=== PATIENT | female | born 2000 | race African-American/Black ===

== ENCOUNTER 2021-09-19 07:39 | Emergency (ER) | payer MEDICAID, SELFPAY ==
[2021-09-19 07:41] VITALS: BP 131/79; PULSE 108; RESP 17; TEMP 37.1; O2SAT 98; BMI 25.7
--- NOTE | 2021-09-19 07:47 | NURSING ---
STROKE ALERT CALLED [phone]
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
[2021-09-19 07:51] LABS: Bedside Glucose 87 mg/dL (74-106)
--- NOTE | 2021-09-19 07:52 | ED.RN ---
STROKE ALERT CANCELLED. PT W/SEIZURE AND WITH SEIZURE HISTORY.
[2021-09-19 07:56] LABS: Absolute Lymphocyte Count 3.79 X10^3/uL (0.83-4.51); Absolute Neutrophil Count 7.3 X10^3/uL (2.0-7.7); Basophil# 0.06 X10^3/uL; Basophil% 0.5 % (0-1); Eosinophils% 0.8 % (0-5); Hematocrit 38.6 % (37-47); Hemoglobin 12.6 g/dL (12.0-15.0); Lymphocyte # 3.79 X10^3/ul (0.83-4.51); Lymphocyte % 31.7 % (19-41); Mean Corp Hgb Conc 32.6 g/dL (32-36); Mean Corpuscular Hgb 30.1 pg (27.0-32.0); Mean Corpuscular Volume 92.1 fL (81-99); Mean Platelet Vol. 9.3 fl (6.2-12.0); Monocyte# 0.69 X10^3/uL; Monocyte% 5.8 % (0-10); NRBC Flagged by Analyzer 0 % (0-5); Neutrophil # 7.25 X10^3/uL (2.7-7.7); Neutrophil % 60.5 % (47-70); Platelet Count 279 K/mm3 (150-450); RBC Distribution Width CV 12.3 % (11.6-14.6); RBC Distribution Width SD 41.7 fl (35.1-43.9); Red Blood Count 4.19 M/mm3 (4.2-5.4)
[2021-09-19 08:06] LABS: Anion Gap 7 (5-15); BUN 14 mg/dL (7-18); BUN/Creat Ratio 14.6 RATIO (10-20); Chloride 107 mmol/L (98-107); Creatinine, Serum 0.96 mg/dL (0.55-1.02); EST Glomerular Filtration Rate 79 mL/min (>60); Est Glom Filt Rate - Afr Amer 96 mL/min (>60); Estimated Creatinine Clearance 81.39 ml/min; Glucose 114 mg/dL (74-106); Sodium Level 138 mmol/L (136-145)
[2021-09-19 08:56] LABS: Internal QC Validated? YES +Cl - CLEAR BKGD; Pregnancy, Serum, hCG Quali. NEGATIVE Negative
[2021-09-19 08:57] VITALS: BP 109/63; PULSE 85; RESP 16
[2021-09-19 09:53] VITALS: BP 117/80; PULSE 99; RESP 21; O2SAT 94
== END 2021-09-19 09:54 | disposition home or self-care (01) ==
PROVIDERS: Emergency Provider Emergency Medicine; Visit Provider Emergency Medicine
DX: G40.909 Epilepsy, unspecified, not intractable, without status epilepticus (principal)
CPT/HCPCS: 70450; 72125; 80048; 82962; 84703; 85025; 99283; A4216

== ENCOUNTER 2022-07-23 01:27 | Emergency (ER) | payer MEDICAID, SELFPAY ==
[2022-07-23 01:28] VITALS: BP 122/79; PULSE 100; RESP 18; TEMP 36.7; O2SAT 100; BMI 25.1
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
[2022-07-23] MEDS: Ketorolac 30 MG/ML Syringe IM (02:14)
[2022-07-23] MEDS: diazePAM 5 MG Tablet PO (02:19)
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
== END 2022-07-23 03:16 | disposition home or self-care (01) ==
PROVIDERS: Emergency Provider Emergency Medicine; Visit Provider Emergency Medicine
DX: S39.012A Strain of muscle, fascia and tendon of lower back, initial encounter (principal); V49.88XA Car occupant (driver) (passenger) injured in other specified transport accidents, initial encounter
CPT/HCPCS: 72100; 96372; 99285

== ENCOUNTER 2023-06-22 23:39 | Emergency (ER) | payer SELFPAY ==
[2023-06-22 23:40] VITALS: BP 125/83; PULSE 81; RESP 16; TEMP 36.6; O2SAT 99; BMI 26.4
--- NOTE | 2023-06-23 01:47 | EX.ED.DYSGE1 ---
HPI History of Present Illness Chief Complaint: Ear Problem Detail of Chief Complaint: Right ear pain Informant: patient Onset/Context/Timing Onset: Yesterday Context: Sudden Onset Timing: Continuous Quality: Pain Location: Right ear Current Severity: Moderate Maximum Severity: Moderate Worsened by: Nothing specific Relieved by: Nothing Associated Symptoms Associated Symptoms: No constitutional symptoms Narrative Narrative: Patient is a 22-year-old female who presents with right ear pain. She denies fever, chills night sweats. Denies headache. Denies drainage from the ear. She denies using a Q-tip. She denies ocular, or visual symptoms She denies rhinorrhea, congestion, postnasal drainage. Denies sore throat. She denies cough or shortness of breath. Prior similar symptoms: Yes Recent Illness/Hospitalization: No PFSH PFSH Medical History Seizures Home Medications ibuprofen 600 mg tablet 600 mg PO 4X/DAY PRN PRN pain #40 tabs 07/23/22 [Rx Last Taken Unknown] amoxicillin 500 mg tablet 500 mg PO TID #30 tabs 06/23/23 [Rx Last Taken Unknown] naproxen 500 mg tablet 500 mg PO BID #10 tabs 06/23/23 [Rx Last Taken Unknown] Allergy/AdvReac Type Severity Reaction Status Date / Time No Known Allergies Allergy Verified 06/22/23 23:43 Social History (Updated 06/23/23 @ 01:[address] Kj Olivia MD) household members: none Smoking Status: Current every day smoker tobacco type: e-cigarettes alcohol intake: never substance use type: does not use ROS ROS ED Constitutional Constitutional ED: Denies chills, fever(s), subjective or sweats Eyes Eyes: Denies blurry vision, change in vision or diplopia ENT ENT ED: Reports ear pain right; Denies rhinorrhea or sore throat Cardiovascular Cardiovascular: Denies chest pain Respiratory/Chest Respiratory/Chest: Denies cough or dyspnea Gastrointestinal Gastrointestinal: Denies nausea or vomiting Musculoskeletal Musculoskeletal: Denies arthralgias or myalgias EXAM Physical Exam Const Vital Signs: 06/22/23 23:40 Temperature 97.8 F Temperature Source Oral Pulse Rate 81 Respiratory Rate 16 Blood Pressure 125/83 H Blood Pressure Mean 97 Pulse Ox 99 Oxygen Delivery Method Room Air Positive well nourished and well developed General Appearance ED: well developed and NAD; Negative for pallor HEENT Reports moist mucous membranes HEENT Narrative: Head is atraumatic and normocephalic. There is discomfort with pulling on the auricle on the right. There is no discomfort portion of the tragus. There is no abnormality noted of the external auditory canal. The right TM is abnormal with erythema loss of landmarks. Nares patent. Posterior pharynx is normal Eyes PERRL and EOMs intact bilaterally General Eye ED: Negative for pale conjunctiva or scleral icterus Neck no lymphadenopathy, supple and no JVD Neck Narrative: There is no preauricular lymphadenopathy. Resp normal respiratory effort Cardio regular rate and regular rhythm Neuro oriented x3 and CN's II-XII intact bilaterally Sensorium / Orientation: alert Psych mental status grossly normal Skin no rashes or lesions noted, no wounds and skin turgor normal General Skin Exam: elasticity normal; Negative for jaundice or pallor MDM MDM MDM Narrative Medical decision making narrative: Patient with right ear pain differential would be external otitis, otitis media, otitis serous, TMJ or dental pain. Based on history and physical patient's pain is due to otitis media suppurativa. She was treated with amoxicillin and NSAIDs and she has no contraindication. History & Record Review Additional record(s) reviewed:: Prior ED visit (Seen last year for back pain and seizures) and Prior labs Discharge Plan Triage Chief Complaint: Ear Problem ED Provider: Kj Olivia Dx/Rx/DC Orders Clinical Impression: History of seizure, Otitis media Prescriptions: New amoxicillin 500 mg tablet 500 mg PO TID Qty: 30 0RF naproxen 500 mg tablet 500 mg PO BID Qty: 10 0RF No Action ibuprofen 600 mg tablet 600 mg PO 4X/DAY PRN PRN (Reason: pain) Qty: 40 0RF Primary Care Provider: Care Physician,No Primary Referrals: Nelson Baxter MD [Med Staff - Active Staff] - 3-5 Days if not improving Care Physician,No Primary [Primary Care Provider] - Disposition Disposition: Home, Self Care
[2023-06-23] MEDS: Naproxen 250 MG Tablet 500 MG PO (01:50)
[2023-06-23] MEDS: AMOXICILLIN 500 MG CAPSULE PO (01:51)
[2023-06-23 01:52] VITALS: BP 122/78; PULSE 77; RESP 16; TEMP 36.6; O2SAT 100
== END 2023-06-23 01:57 | disposition home or self-care (01) ==
PROVIDERS: Emergency Provider Emergency Medicine; Visit Provider Emergency Medicine
DX: H66.91 Otitis media, unspecified, right ear (principal); F17.290 Nicotine dependence, other tobacco product, uncomplicated
CPT/HCPCS: 99283

== ENCOUNTER 2024-04-20 15:41 | Emergency (ER) | payer SELFPAY ==
[2024-04-20 15:42] VITALS: BP 112/62; PULSE 80; RESP 16; TEMP 37; O2SAT 98; BMI 27.9
--- NOTE | 2024-04-20 16:11 | CT_ITS ---
EXAM: CT HEAD WITHOUT INTRAVENOUS CONTRAST CLINICAL INDICATION: seizure TECHNIQUE: Multiple axial images were obtained of the head without intravenous contrast. This CT exam was performed using one or more of the following dose reduction techniques: automated exposure control, adjustment of the mA and/or kV according to patient size, and/or use of iterative reconstruction technique. COMPARISON: 09/19/2021 FINDINGS: BRAIN AND EXTRA-AXIAL SPACES: Unremarkable. No intra- or extra-axial hemorrhage. No evidence of acute infarct. No intracranial mass or mass effect. There is preservation of the bey/white matter interface. Posterior fossa structures are unremarkable. Ventricles are appropriate for age. No hydrocephalus. Basal cisterns are patent. BONES/JOINTS: Unremarkable. No discrete lytic or blastic abnormalities. SINUSES: Unremarkable as visualized. Clear. MASTOID AIR CELLS: Unremarkable. Clear. ORBITS: Visualized globes, extraocular muscles, optic nerves and retrobulbar fat appear unremarkable. CT/Brain/Head without Contrast IMPRESSION: Negative head/brain CT without intravenous contrast. Electronically Signed: Gildardo Soriano MD at 16:57 EST ,
--- NOTE | 2024-04-20 16:12 | EX.ED.DYSGE1 ---
HPI History of Present Illness Chief Complaint: Seizure Detail of Chief Complaint: Seizure Informant: patient Narrative Narrative: Patient presents to the emergency department after having a seizure while at work. 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 It is unclear how long it lasted. Patient brought down to the ER for evaluation. Patient has known seizure history and is on Keppra. She tells me he has been compliant. She denies any recent illness but states she did have flulike illness meaning viral gastroenteritis about a week ago. Patient felt well prior to the seizure. Her last seizure was about 4 5 months ago. She denies any head or neck pain. She describes some mild lower abdominal pain but she states that she started her menstrual period today. Patient vomiting on arrival to the emergency department. [facility] Medical History Seizures Home Medications ?Medication ?Instructions ?Recorded ?Last Taken ?Type ibuprofen 600 mg tablet 600 mg PO 4X/DAY PRN PRN pain #40 07/23/22 Unknown Rx tabs amoxicillin 500 mg tablet 500 mg PO TID #30 tabs 06/23/23 Unknown Rx naproxen 500 mg tablet 500 mg PO BID #10 tabs 06/23/23 Unknown Rx ondansetron 4 mg disintegrating 4 mg PO Q8H PRN PRN Nausea #10 tabs 04/20/24 Unknown Rx tablet Allergy/AdvReac Type Severity Reaction Status Date / Time No Known Allergies Allergy Verified 04/20/24 15:42 Social History (Updated 06/23/23 @ 01:[address] Kj Olivia MD) household members: none Smoking Status: Current every day smoker tobacco type: e-cigarettes alcohol intake: never substance use type: does not use ROS ROS ED Review of Systems ROS Unobtainable: other Constitutional Constitutional ED: Reports lethargy; Denies chills, fever(s), sweats or weight loss Eyes Eyes: Denies blurry vision, change in vision or diplopia ENT ENT ED: Denies rhinorrhea or sore throat Cardiovascular Cardiovascular: Denies chest pain, orthopnea or racing heartbeat Respiratory/Chest Respiratory/Chest: Denies cough, dyspnea, dyspnea on exertion, orthopnea or sputum Gastrointestinal Gastrointestinal: Reports abdominal pain, nausea and vomiting; Denies diarrhea Genitourinary Genitourinary ED: Denies dysuria, hematuria or urinary frequency Musculoskeletal Musculoskeletal: Denies arthralgias, back pain, myalgias or neck pain Integumentary Denies abscess, Abrasions or rash Neurologic Neurologic: Reports other Details: Seizure ; Denies headache(s) or weakness Psychiatric Psychiatric: Denies anxiety, depression or suicidal thoughts Endocrine Endocrinology: Denies polydipsia, polyphagia or polyuria Hematologic/Lymphatic Hematologic/Lymphatic: Denies easy bleeding, easy bruising or lymphadenopathy Allergic/Immunologic Allergic/Immunologic ED: Denies mouth swelling, tongue swelling or urticaria EXAM Physical Exam Const Vital Signs: 04/20/24 15:42 Temperature 98.6 F Temperature Source Oral Pulse Rate 80 Respiratory Rate 16 Blood Pressure 112/62 Blood Pressure Mean 78 Pulse Ox 98 Oxygen Delivery Method Room Air Positive well nourished and well developed General Appearance ED: well developed and NAD HEENT Reports TM's clear and moist mucous membranes normocephalic and atraumatic; Negative for trauma or tenderness Tympanic Membrane ED: Yes TM's clear Eyes PERRL and EOMs intact bilaterally General Eye ED: Negative for pale conjunctiva or scleral icterus Neck no lymphadenopathy, supple and no JVD General: Negative for tenderness Chest Wall inspection of chest normal and palpation of chest normal Chest: Negative for tenderness Resp normal respiratory effort and clear to auscultation bilaterally Effort and Inspection: Negative for respiratory distress or pain with movement Auscultation: Negative for rhonchi, wheezes or diminished lung sounds Cardio regular rate, regular rhythm, S1 normal heart sound, S2 normal heart sound and no murmurs Peripheral Pulses: pulses 2+ throughout GI normal to inspection, nondistended, normoactive bowel sounds, soft to palpation, non-distended and no masses GI Narrative: Mild suprapubic tenderness on palpation. There is no rebound, rigidity, or peritoneal signs. No mass palpated. Back/Spine no CVA tenderness and no thoracic nor lumbar tenderness Extremity normal to inspection General Extremety ED: Negative for edema General Extremity: Negative for edema Neuro oriented x3, CN's II-XII intact bilaterally, no sensory deficits noted and gait normal Sensorium / Orientation: awake, alert, oriented to person, oriented to place and oriented to time Motor Exam: strength 5/5 throughout and strength abnormal Psych mental status grossly normal Skin no rashes or lesions noted and no wounds MDM MDM MDM Narrative Medical decision making narrative: Patient presents to the emergency department after having a seizure here at the hospital while at work. On arrival she is awake and alert and appropriate. She has vomiting on arrival. Patient denies recent illness. No significant external evidence of trauma noted. IV line was established. She was given a liter Mustain fluid bolus. She was given Zofran 4 mg IV. CBC with differential obtained showed a white count of 6.3 with hemoglobin 12.9 and platelet count of 311. Chemistries were unremarkable. LFTs were normal. Serum hCG was negative. I did obtain a CT scan of the brain without contrast given the fall and seizure and vomiting and this was unremarkable. On repeat examination at 1512 she is no longer vomiting and feels well. She will be discharged to home with a prescription for Zofran. She is advised to push fluids and continue to take her Keppra like normal. Advised to follow-up with her neurologist. Lab Data Attestation: I reviewed the patient's lab results. Labs: Laboratory Results - last 24 hr 04/20/24 16:17 WBC 6.3 RBC 4.29 Hgb 12.9 Hct 39.7 MCV 92.5 MCH 30.1 MCHC 32.5 RDW Std Deviation 43.2 RDW Coeff of Naina 12.8 Plt Count 311 MPV 9.1 Immature Gran % (Auto) 0.300 Neut % (Auto) 44.0 L Lymph % (Auto) 44.7 H Rush % (Auto) 8.7 Eos % (Auto) 1.3 Baso % (Auto) 1.0 Absolute Neuts (auto) 2.8 Absolute Lymphs (auto) 2.81 Nucleated RBC % 0 Sodium 136 Potassium 3.9 Chloride 107 Carbon Dioxide 26.0 Anion Gap 3 L BUN 13 Creatinine 0.81 Estim Creat Clear Calc 103.26 Est GFR (MDRD) Af Amer 113 Est GFR (MDRD) Non-Af 93 BUN/Creatinine Ratio 16.0 Glucose 115 H Calcium 9.0 Total Bilirubin 0.50 AST 11 L ALT 12 L Alkaline Phosphatase 87 Total Protein 7.8 Albumin 3.8 Globulin 4.0 Albumin/Globulin Ratio 1.0 Serum , Qual NEGATIVE Radiography Diagnostic Testing: Clinical Impression(s) from Imaging Studies Brain CT 04/20/24 16:11 IMPRESSION: Negative head/brain CT without intravenous contrast. Electronically Signed: Gildardo D. Breckwoldt, MD at 16:57 EST , Discharge Plan Triage Chief Complaint: Seizure ED Provider: Kalpana Toribio Dx/Rx/DC Orders Clinical Impression: Seizure Instructions: ED Seizure, Recurrent (Adult) Prescriptions: New ondansetron 4 mg tablet,disintegrating 4 mg PO Q8H PRN PRN (Reason: Nausea) Qty: 10 0RF No Action ibuprofen 600 mg tablet 600 mg PO 4X/DAY PRN PRN (Reason: pain) Qty: 40 0RF amoxicillin 500 mg tablet 500 mg PO TID Qty: 30 0RF naproxen 500 mg tablet 500 mg PO BID Qty: 10 0RF Primary Care Provider: Care Physician,No Primary Referrals: Care Physician,No Primary [Primary Care Provider] - Print Language: Estonian Disposition Disposition: Home, Self Care
[2024-04-20] MEDS: Ondansetron 4 MG/2 ML Vial IV (16:13)
[2024-04-20] MEDS: 0.9% Normal Saline (1000mL) 1,000 ML 1000 ML IV (16:15)
[2024-04-20 16:29] LABS: Absolute Lymphocyte Count 2.81 X10^3/uL (0.83-4.51); Absolute Neutrophil Count 2.8 X10^3/uL (2.0-7.7); Basophil# 0.06 X10^3/uL; Eosinophil# 0.08 X10^3/uL; Eosinophils% 1.3 % (0-5); Hematocrit 39.7 % (37-47); Hemoglobin 12.9 g/dL (12.0-15.0); Lymphocyte # 2.81 X10^3/ul (0.83-4.51); Lymphocyte % 44.7 % (19-41); Mean Corp Hgb Conc 32.5 g/dL (32-36); Mean Corpuscular Hgb 30.1 pg (27.0-32.0); Mean Corpuscular Volume 92.5 fL (81-99); Mean Platelet Vol. 9.1 fl (6.2-12.0); Monocyte# 0.55 X10^3/uL; Monocyte% 8.7 % (0-10); NRBC Flagged by Analyzer 0 % (0-5); Neutrophil # 2.77 X10^3/uL (2.7-7.7); Platelet Count 311 K/mm3 (150-450); RBC Distribution Width CV 12.8 % (11.6-14.6); RBC Distribution Width SD 43.2 fl (35.1-43.9); Red Blood Count 4.29 M/mm3 (4.2-5.4); White Blood Count 6.3 K/mm3 (4.4-11.0)
[2024-04-20 16:41] VITALS: BP 120/75; PULSE 75; RESP 16; O2SAT 98
[2024-04-20 16:44] LABS: Internal QC Validated? YES +Cl - CLEAR BKGD; Pregnancy, Serum, hCG Quali. NEGATIVE Negative
[2024-04-20 16:45] LABS: AST(SGOT) 11 U/L (15-37); Alanine Aminotransfer ALT/SGPT 12 U/L (13-56); Albumin, Serum 3.8 g/dL (3.2-5.0); Alkaline Phosphatase 87 U/L (45-117); Anion Gap 3 (5-15); BUN 13 mg/dL (7-18); Chloride 107 mmol/L (98-107); Creatinine, Serum 0.81 mg/dL (0.55-1.02); EST Glomerular Filtration Rate 93 mL/min (>60); Est Glom Filt Rate - Afr Amer 113 mL/min (>60); Estimated Creatinine Clearance 103.26 ml/min; Glucose 115 mg/dL (74-106); Potassium 3.9 mmol/L (3.5-5.1); Protein, Total 7.8 g/dL (6.4-8.2); Sodium Level 136 mmol/L (136-145)
[2024-04-20 17:26] VITALS: BP 124/81; PULSE 79; RESP 15; TEMP 36.9; O2SAT 97
== END 2024-04-20 17:40 | disposition home or self-care (01) ==
LOC: ED 17:38
PROVIDERS: Emergency Provider Emergency Medicine; Visit Provider Emergency Medicine
DX: G40.909 Epilepsy, unspecified, not intractable, without status epilepticus (principal); Z79.899 Other long term (current) drug therapy; F17.290 Nicotine dependence, other tobacco product, uncomplicated
CPT/HCPCS: 70450; 80053; 84703; 85025; 96361; 96374; 99283; A4216; J2405